=== PATIENT | female | born 1990 | race African-American/Black ===

== ENCOUNTER 2020-10-14 05:16 | Emergency (ER) | payer MEDICAID ==
[~2020-10-14] VITALS: Ht 170.2 cm; Wt 102.1 kg
[2020-10-14] MEDS ORDERED: BENZOCAINE ONE 20% MUCOSAL SPRAY. MM (05:30)
[2020-10-14] MEDS ORDERED: HYDROcodone/APAP 5/325MG 1 TAB TABLET PO ONE (05:30)
[2020-10-14] MEDS ORDERED: IBUPROFEN 600 MG TABLET. PO ONE (05:30)
[2020-10-14] MEDS ORDERED: AMOXICILLIN 250 MG CAPSULE PO ONE (05:30)
[2020-10-14 05:37] VITALS: BP 165/110
[2020-10-14] MEDS ORDERED: AMOX500C PO (05:37)
--- NOTE | 2020-10-14 05:38 | PHYS DOC ---
Adult General Chief Complaint Chief Complaint: DENTAL PROBLEM HPI HPI Patient is a 30-year-old female who presents with dental pain for the last 2 days, 8 out of 10, sharp in nature on the back lower molar. States she has poor dentition generally has had tooth pain for but has not had a chance to see a de ntist. Denies any fevers, pain or trouble swallowing, chest pain, shortness of breath, abdominal pain, nausea, vomiting. States she did take some Tylenol for the pain but it did not help. Review of Systems Review of Systems Review of systems otherwise unremarkable except noted in HPI Current Medications Current Medications Current Medications Medications (Trade) Dose Ordered Sig/Nafisa Start Time Stop Time Status Last Admin Dose Admin Acetaminophen/ Hydrocodone Bitart (Lortab 5/325) 2 tab 1X ONCE 10/14/20 05:30 10/14/20 05:31 UNV Amoxicillin (Amoxil) 500 mg 1X ONCE 10/14/20 05:30 10/14/20 05:31 UNV Physical Exam Physical Exam Constitutional: Well developed, well nourished, no acute distress, non-toxic appearance. [] HENT: Normocephalic, atraumatic, Eyes: conjunctiva normal, no discharge. [] Neck: Normal range of motion, no tenderness, supple, no stridor, no lymphadenopathy. [] Cardiovascular:Heart rate regular rhythm, no murmur [] Neurologic: Alert and oriented X 3, no focal deficits noted. [] Psychologic: Affect normal, judgement normal, mood normal. [] EKG EKG [] Radiology/Procedures Radiology/Procedures [] Heart Score C/O Chest Pain: No Risk Factors: Risk Factors: DM, Current or recent (<one month) smoker, HTN, HLP, family history of CAD, obesity. Risk Scores: Risk Factors: DM, Current or recent (<one month) smoker, HTN, HLP, family history of CAD, obesity. Course & Med Decision Making Course & Med Decision Making Patient is a 30-year-old female who presents with dental pain Vital signs not concerning. Physical exam noted above. Given oral pain medicine, topical pain management. Patient declined dental block. Noted on amoxicillin in the ED. Gave recommendations for pain management at home. Gave resources on several local dentists, free clinics and a emergency dentist. Advised to call around first thing this morning when she gets home and start requesting immediate appointments Gave return precautions to the ED. Patient grateful, verbalized understanding agree with plan of discharge. [] Dragon Disclaimer Dragon Disclaimer This electronic medical record was generated, in whole or in part, using a voice recognition dictation system. Departure Departure: Impression: Primary Impression: Pain, dental Disposition: HOME / SELF CARE / HOMELESS Condition: GOOD Referrals: PCP,NO (PCP) RENE BLACKMAN MD Patient Instructions: Dental Pain Additional Instructions: Thank you for coming into the emergency department tonight and allowing us to take care of you. Please read all the attached information very carefully to go back over what we discussed. You can begin a Tylenol, ibuprofen, Benadryl and Orajel regimen at home as discussed and demonstrated. You are given contact information for several local dentists, free dentist and the emergency dentist. Please begin calling around first thing this morning to leave your name and n umber to set up appointments as soon as possible. Come back to the emergency department if you have new or concerning symptoms as discussed. Scripts Amoxicillin (AMOXICILLIN) 500 Mg Capsule 1 CAP PO BID for dental pain for 10 Days, #20 CAP Prov: JENSEN ZHAO MD 10/14/20 JENSEN ZHAO MD Oct 14, 2020 05:38
== END 2020-10-14 05:54 | disposition home or self-care (01) ==
LOC: ER 05:16
DX: K08.89 Other specified disorders of teeth and supporting structures (principal)
CPT/HCPCS: 99284